=== PATIENT | female | born 1995 | race African-American/Black ===

== ENCOUNTER 2017-01-10 10:08 | Emergency (ER) | payer OTHER ==
[~2017-01-10] VITALS: Ht 167.6 cm; Wt 117.9 kg
--- NOTE | 2017-01-10 11:03 | ED GI/GU/ABDOMINAL COMPLAINT ---
History of Present Illness General Chief Complaint: Female Urogenital Problems Stated Complaint: VAG BLEEDING X 2 WEEKS Source: patient, old records Exam Limitations: no limitations Vital Signs & Intake/Output Vital Signs & Intake/Output Vital Signs Date Time Temp Pulse Resp B/P B/P Pulse O2 O2 Flow FiO2 Mean Ox Delivery Rate 01/10 1159 98.3 54 18 121/68 99 Room Air ED Intake and Output 01/11 0000 01/10 1200 Intake Total Output Total Balance Patient 260 lb Weight Weight Reported by Patient Measurement Method Allergies Coded Allergies: No Known Allergies (01/10/17) Reconcile Medications Levonorgestrel-Ethin Estradiol (Aviane-28 Tablet) 0.1 MG-20 MCG TABLET 1 TAB PO DAILY BC (Reported) Medroxyprogesterone Acetate (Provera) 10 MG TABLET 1 TAB PO DAILY uterine bleeding Naproxen 500 MG TABLET 1 TAB PO BID PRN pain Triage Note: 21 Y/O FEMALE C/O VAGINAL BLEEDING X 2 WEEKS; STATES SHE IS ON CONTROL AND HAD REGULAR MENSES 1ST WEEK OF DECEMBER, "IT WAS LIGHT BUT OTHERWISE OK". REPORTS 2 WEEKS OF INTERMITTENT BLEEDING; STATES THIS HAPPENED IN SEPTEMBER AND PT WAS EVAL'D AT [facility] - "THEY GAVE ME PILLS". PT REPORTS UNKNOWN STATUS. DNEIES PAIN. DENIES OTHER COMPLAINTS URINE SAMPLE REQUESTED. Triage Nurses Notes Reviewed? yes LMP (ages 10-50): now (12/27/16) ? N Is pt currently ? No Onset: Gradual Duration: week(s): (2), constant Timing: recent history Quality/Severity: cramping Severity Numbers: 1 Location: vaginal Radiation: no radiation Activities at Onset: none Prior Abdominal Problems: similar symptoms No Modifying Factors: none Associated Symptoms: DENIES HPI: 21-year-old female with no medical history presents the ER for evaluation complaining of vaginal bleeding for the past 2 weeks. She states she had a can operator than normal menstrual cycle that began as expected on the first week of December. However states that she's had vaginal bleeding since. She states she initially had cramping bilateral lower quadrant abdominal pain that has since resolved. She reports history of similar symptoms in the past. She was seen at [facility] in September and prescribed naproxen and pills to help stop the bleeding. 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 She denies abdominal pain today. No history of sexually transmitted disease in the past. She is on control. No fever no chills no nausea vomiting diarrhea dizziness lightheadedness or any other complaints. (SAÚL NYE) Past History Travel History Traveled to [place] past 21 day No Medical History Any Pertinent Medical History? none Neurological: NONE EENT: NONE Cardiovascular: NONE Respiratory: NONE Gastrointestinal: NONE Hepatic: NONE Renal: NONE Musculoskeletal: NONE Psychiatric: NONE Endocrine: NONE Blood Disorders: NONE Cancer(s): NONE DATE NIGHT CAREGIVER/Reproductive: NONE Surgical History Surgical History: none Psychosocial History What is your primary language Wolof Tobacco Use: Never used Family History Hx Contributory? No (SAÚL NYE) Review of Systems Review of Systems Constitutional: Reports: see HPI. All Other Systems: Reviewed and Negative Comments Review of systems: See HPI, All other systems negative. Constitutional, no chills no fever, no malaise no weight loss HEENT: No visual changes no sore throat no congestion, no ear pain Cardiovascular: No chest pain , no palpitation , no orthopnea Skin: no rashes, no change in skin Respiratory: No dyspnea no cough no sputum no hemoptysis GI: No nausea no vomiting, no diarrhea, no bloating/constipation : No dysuria No hematuria, no frequency, no discharge Muscle skeletal: No joint pain, no joint swelling, no back pain, no neck pain, Neurologic: No numbness no confusion, no headache Psych: No stress no depression,. Heme/endocrine: No bruising no bleeding Immunology: No lymphadenopathy (SAÚL NYE) Physical Exam Physical Exam General Appearance: well developed/nourished, no apparent distress Gastrointestinal: normal bowel sounds, soft, non-tender Comments: Well-developed well-nourished person in no acute distress HEENT: Normal EENT exam; PERRL, EOMI. HEAD is atraumatic. moist mucous membranes. Neck: Supple, normal range of motion Back: Nontender, no CVA tenderness. Full range of motion Cardiovascular: Regular rate and rhythms no murmurs rubs Respiratory: Chest nontender.There were no bony deformities, no asymmetry. No respiratory distress. Patient speaking in full complete sentences. Breath sounds clear to auscultation bilaterally: NO W/R/R Abdomen: Soft, nontender nondistended, no appreciable organomegaly. Normal bowel sounds. No rebound/guarding Extremity: No edema, full range of motion of extremities Neuro: Alert oriented x3, motor sensory normal There were no obvious focal neurologic abnormalities. Skin: No appreciable rash on exposed skin, skin is warm and dry. Psych: Mood and affect is normal, memory and judgment is normal. Core Measures ACS in differential dx? No Severe Sepsis Present: No Septic Shock Present: No (SAÚL NYE) Progress Differential Diagnosis: ectopic , intrauterine , ovarian cyst, ovarian torsion, PID/cervicitis, threatened AB, UTI/pyelo Plan of Care: Orders Procedure Date/time Status CBC WITHOUT DIFFERENTIAL 01/10 105 Complete BASIC METABOLIC PANEL 01/10 1057 Complete Laboratory Tests 01/10/17 1115: Anion Gap 11, Estimated GFR > 60, BUN/Creatinine Ratio 15.0, Glucose 81, Calcium 9.1, CBC w Diff NO MAN DIFF REQ, RBC 4.72, MCV 84.3, MCH 27.8, RDW 13.3, MPV 9.2 , Gran % 70.1, Lymphocytes % 22.6, Monocytes % 5.0, Eosinophils % 1.3, Basophils % 1.0, Absolute Granulocytes 7.2 H, Absolute Lymphocytes 2.3, Absolute Monocytes 0.5, Absolute Eosinophils 0.1, Absolute Basophils 0.1, PUBS MCHC 33.0 01/10/17 1108: Urinalysis LIGHT H, Urine Color YEL, Urine Clarity CLEAR, Urine pH 6.0, Ur Specific [place] 1.025, Urine Protein TRACE H, Urine Ketones NEG, Urine Nitrite NEG, Urine Bilirubin NEG, Urine Urobilinogen 0.2, Ur Leukocyte Esterase NEG, Ur Microscopic SEDIMENT EXAMINED, Urine RBC 1-3, Urine WBC RARE, Ur Epithelial Cells MOD H, Urine Bacteria MOD H, Urine Mucus FEW, Urine Hemoglobin TRACE- LYSED, Urine Glucose NEG, Urine Test NEGATIVE labs ordered, old records reviewed (SAÚL NYE) Initial ED EKG: none (SAÚL NYE) Departure Departure Time of Disposition: 1207 Disposition: HOME OR SELF CARE Condition: Stable Clinical Impression Primary Impression: Menorrhagia Referrals: UNKNOWN (PCP/Family) Additional Instructions: follow up with your DATE NIGHT CAREGIVER today for follow up this week. naproxen as directed, medroxyprogesterone as directed these were sent to [facility]. return immediately if your symptoms worsen, you feel dizzy lightheaded or have any other concerns Departure Forms: Customer Survey General Discharge Information Prescriptions: Current Visit Scripts Naproxen 1 TAB PO BID PRN pain #30 TAB Medroxyprogesterone Acetate (Provera) 1 TAB PO DAILY #10 TAB (SAÚL NYE) PA/INDUSTRIAL PSYCHOLOGY TEACHER Co-Sign Statement Statement: ED Attending supervision documentation- [] I saw and evaluated the patient. I have also reviewed all the pertinent lab results and diagnostic results. I agree with the findings and the plan of care as documented in the PA's/INDUSTRIAL PSYCHOLOGY TEACHER's documentation. [X I have reviewed the ED Record and agree with the PA's/INDUSTRIAL PSYCHOLOGY TEACHER's documentation. [] Additions or exceptions (if any) to the PAs/INDUSTRIAL PSYCHOLOGY TEACHER's note and plan are summarized below: [] (OSKAR WHEELER DO)
[2017-01-10] MEDS ORDERED: AVIANE-28 TABL1 EACH PO (11:07)
[2017-01-10 11:24] LABS: ABSOLUTE BASOPHIL COUNT 0.1 /CUMM (0.0-0.2); ABSOLUTE EOSINOPHIL COUNT 0.1 /CUMM (0.0-0.7); ABSOLUTE GRANULOCYTE CT 7.2 /CUMM (1.4-6.5); ABSOLUTE LYMPH COUNT 2.3 /CUMM (1.2-3.4); ABSOLUTE MONOCYTE COUNT 0.5 /CUMM (0.10-0.60); EOSINOPHIL % 1.3 % (0-5); GRANULOCYTE % 70.1 % (42.2-75.2); HEMATOCRIT 39.8 % (37-47); MEAN CORPUSCULAR HGB 27.8 PG (27.0-31.0); MEAN CORPUSCULAR VOLUME 84.3 FL (81.0-99.0); MEAN PLATELET VOLUME 9.2 FL (7.4-10.4); PLATELET COUNT 337 /CUMM (130-400); RBC DISTRIBUTION WIDTH 13.3 % (11.5-14.5); RED BLOOD CELL CT 4.72 /CUMM (4.20-5.40); WHITE BLOOD CELL COUNT 10.3 /CUMM (4.8-10.8)
[2017-01-10 11:59] VITALS: BP 121/68
[2017-01-10] MEDS ORDERED: PROVERA10 MG PO (12:09)
[2017-01-10] MEDS ORDERED: NAPROXEN500 M2 PO (12:09)
== END 2017-01-10 12:19 ==
LOC: ERH 10:08
PROVIDERS: Physician Assistant Medical
DX: N92.0 Excessive and frequent menstruation with regular cycle (principal)
CPT/HCPCS: 81001; 81025